=== PATIENT | female | born 1975 | race Caucasian/White ===

== ENCOUNTER → 2020-07-15 17:57 | Outpatient (CLI) | payer OTHER, SELFPAY | PROVIDERS: Family Provider Family Medicine; PCP Family Medicine; Referring Provider Family Medicine; Visit Provider Family Medicine | DX: M54.5 Low back pain (principal); Z53.20 Procedure and treatment not carried out because of patient's decision for unspecified reasons ==

== ENCOUNTER → 2020-07-23 14:23 | Outpatient (CLI) | payer OTHER, SELFPAY ==
--- NOTE | 2020-07-23 | DI.US.S_ITS ---
PROCEDURE: US ABDOMEN LIMITED INDICATIONS: SOFT TISSUE MASS ON BACK TECHNIQUE: Real-time focused scanning was performed of the abdomen, with image documentation. COMPARISON: None. FINDINGS: Scanning is performed at the area of clinical concern involving the soft tissues of the right lower back. Within subcutaneous fat, there are 2 hyperechoic foci seen, which are slightly hyperechoic compared to the surrounding normal subcutaneous fat, which measure: 17 x 8 x 21 mm and 7 x 4 x 7 mm No abnormal vascularity can be seen. 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 Dictated by: Brian Alvarez M.D. on 07/23/2020 at 14:06 Approved by: Brian Alvarez M.D. on 07/23/2020 at 14:08
== END ==
PROVIDERS: Family Provider Family Medicine; PCP Family Medicine; Referring Provider Physician Assistant Medical; Visit Provider Physician Assistant Medical
DX: R22.2 Localized swelling, mass and lump, trunk (principal)
CPT/HCPCS: 76705

== ENCOUNTER → 2020-08-31 09:11 | Outpatient (CLI) | payer OTHER, SELFPAY ==
[2020-08-31 10:46] LABS: COVID19 -Nasal RAPID Negative (Negative)
== END ==
PROVIDERS: Family Provider Family Medicine; PCP Family Medicine; Visit Provider Surgery
DX: Z20.828 Contact with and (suspected) exposure to other viral communicable diseases (principal)
CPT/HCPCS: 87635; C9803

== ENCOUNTER 2020-09-01 06:15 | Day surgery (SDC) | payer OTHER, SELFPAY ==
[2020-08-31 08:43] VITALS: BMI 41.9
--- NOTE | 2020-09-01 | PATH_ITS ---
[facility] Accession Number: [id number] . 01 Material submitted: . back - RIGHT BACK MASS . 01 Diagnosis: Right Back, Biopsy: Angiolipoma. MRV 09/06/2020 1322 Local . 01 Electronically signed: . Meaghan Barber MD, Dermatopathologist NPI- [id number] . 01 Gross description: . Received in formalin, labeled right back mass consists of three escalona-yellow lobulated fragments of soft tissue. The tissue fragments are inked blue. The specimen is entirely submitted in cassette A1. ([id number]) /MRV 09/02/2020 0952 Local . 01 Pathologist provided ICD-10: D17.9 . 01 CPT . 204815 Performed at: [address] [id number] MD Ang Mcfadden MD Phone: [phone]
[2020-09-01 07:07] VITALS: BP 118/76; PULSE 93; RESP 16; TEMP 36.2; O2SAT 100; BMI 41.9
[2020-09-01] MEDS: CEFAZOLIN 2 GM/100 ML FROZ.PIGGY IV (07:30)
[2020-09-01] MEDS: LACTATED RINGERS 1,000 ML 100 ML IV (07:30)
--- NOTE | 2020-09-01 07:31 | PM.PREOP ---
Pre-operative Note COVID-19 COVID-19 status: Negative Result date/Date tested (Pos, Neg/Pending): 08/31/20 Interval Note History & Physical reviewed/Exam performed by Physician: Yes Changes to H&P: No
[2020-09-01] MEDS: BUPIVACAINE 0.25% W/ EPI (PF) 10 ML VIAL 20 ML INJ (08:20)
[2020-09-01 08:31] VITALS: BP 114/60; PULSE 84; RESP 7; TEMP 36.4; O2SAT 94
[2020-09-01 08:36] VITALS: BP 105/62; PULSE 95; RESP 8; O2SAT 96
--- NOTE | 2020-09-01 08:39 | P.OP_ITS ---
Operative Date/Time/Diagnoses Date of procedure: 09/01/20 Time of procedure: 08:39 Pre-op diagnosis: right lower back mass Post-op diagnosis: same Procedure & Clinicians Procedure: Excision of right lower back mass, 1 x 2 cm fatty tumor Same procedure as scheduled: Yes Indications: Right lower back mass, causing pain Surgeon: Leatha Funes Click Yes if Unassisted: Yes Anesthesia Type: General Operative Notes Findings: Small fatty tumor Specimen(s): other (right lower back mass) Estimated Blood Loss (mL): 1 Blood products transfused: none Procedure in detail: The patient was brought to the operating room, placed supine on the operating table, and sequential compression devices were placed on both legs and turned on. Appropriate perioperative antibiotics were given. General anesthesia was induced by the anesthesiologist and the patient was intubated with an LMA. She was positioned in left lateral decubitus position with all bony prominences padded. The right lower back was prepped and draped in sterile fashion. Surgical time-out was conducted. Local anesthetic was given in the area of concern overlying the palpable mass. A 15 blade was used to make a 3 cm transverse incision in the skin. The skin incision was dissected down through the dermis using electrocautery, until an abnormal fatty tumor was reached. Dissection was carried around the mass, and it was removed and passed off the field. It was approximately 1 x 2 cm in aggregate. Hemostasis was achieved using cautery. The deep dermis was then closed with 3-0 Vicryl interrupted suture and the skin was closed with subcuticular running Monocryl 4- 0. The skin edges were then sealed with Dermabond. This concluded the procedure. The patient was returned to supine position and was transferred onto the [facility]. She was awakened from anesthesia and extubated without incident. The patient was then transferred to the postanesthesia care unit in stable condition. She tolerated the procedure well. Needle sponge and instrument counts were correct x2 at the end of the case. Complications: none Post-operative Condition: stable Disposition: PACU
[2020-09-01 08:42] VITALS: BP 107/62; PULSE 97; RESP 11; TEMP 36.6; O2SAT 95
[2020-09-01 08:46] VITALS: BP 121/71; PULSE 97; RESP 16; O2SAT 95
[2020-09-01 08:50] VITALS: BP 119/62; PULSE 86; RESP 17; TEMP 36.4; O2SAT 98
== END 2020-09-01 09:05 | disposition home or self-care (01) ==
PROVIDERS: Family Provider Family Medicine; PCP Family Medicine; Referring Provider Family Medicine; Visit Provider Surgery
PROC: (CPT 21930; principal; 2020-09-01 07:45)
DX: D17.1 Benign lipomatous neoplasm of skin and subcutaneous tissue of trunk (principal); F17.210 Nicotine dependence, cigarettes, uncomplicated
CPT/HCPCS: 21930; J0690; J1100; J1885; J2250; J2405; J2704; J3010

== ENCOUNTER → 2021-11-28 17:29 | Outpatient (CLI) | payer OTHER, SELFPAY ==
--- NOTE | 2021-11-28 17:32 | DI.MG.S_ITS ---
BILATERAL DIGITAL SCREENING MAMMOGRAM 3D/2D WITH CAD: 11/28/2021 CLINICAL: Routine screening. Comparison is made to exams dated: 10/18/2015 ultrasound, 10/18/2015 mammogram, and 10/12/2015 mammogram - [facility]. There are scattered fibroglandular elements in both breasts. Current study was also evaluated with a Computer Aided Detection (CAD) system. No significant masses, calcifications, or other findings are seen in either breast. There has been no significant interval change. IMPRESSION: NEGATIVE There is no mammographic evidence of malignancy. A 1 year screening mammogram is recommended. This exam was interpreted at Station ID: [id number]. NOTE: For mammograms, a report in lay terms will be sent to the patient. Approximately 15% of breast malignancies will not be visualized mammographically. In the management of a palpable breast mass, a negative mammogram must not discourage biopsy of a clinically suspicious lesion. Electronically Signed By: Warner Knox M.D. [facility] [place]:11/29/2021 11:47:19 letter sent: Normal Exam ACR BI-RADS Category 1: Negative [id number]
== END ==
PROVIDERS: Family Provider Family Medicine; PCP Physician Assistant Medical; Referring Provider Physician Assistant Medical; Visit Provider Physician Assistant Medical
DX: Z12.31 Encounter for screening mammogram for malignant neoplasm of breast (principal)
CPT/HCPCS: 77063; 77067

== ENCOUNTER → 2022-10-21 09:52 | Outpatient (CLI) | payer OTHER, SELFPAY | PROVIDERS: Family Provider Family Medicine; PCP Physician Assistant Medical; Referring Provider Physician Assistant Surgical; Visit Provider Physician Assistant Surgical | DX: Z01.818 Encounter for other preprocedural examination (principal) | CPT/HCPCS: 93005; 93010 ==

== ENCOUNTER → 2023-10-05 16:39 | Outpatient (CLI) | payer OTHER, SELFPAY ==
--- NOTE | 2023-10-05 16:41 | DI.US.S_ITS ---
PROCEDURE: US ABDOMEN LIMITED INDICATIONS: Left lower quadrant abdominal swelling, mass TECHNIQUE: Real-time focused scanning was performed of the abdomen, with image documentation. Color Doppler was also utilized. COMPARISON: [facility], , US ABDOMEN LIMITED, 07/23/2020, 14:44. FINDINGS: At the area of clinical concern within the left lower quadrant, there is a subcutaneous ovoid nodule that measures 2.8 x 2.5 x 1.4 cm. The echotexture is similar to the surrounding normal subcutaneous fat. No abnormal vascularity can be seen. IMPRESSION: Lipoma until proven otherwise at the site of clinical concern. Dictated by: Brian Alvarez M.D. on 10/05/2023 at 17:27 Approved by: Brian Alvarez M.D. on 10/05/2023 at 17:28
== END ==
LOC: US 16:40
PROVIDERS: Family Provider Family Medicine; PCP Physician Assistant Medical; Referring Provider Nurse Practitioner Family; Visit Provider Nurse Practitioner Family
DX: D17.5 Benign lipomatous neoplasm of intra-abdominal organs (principal)
CPT/HCPCS: 76705